=== PATIENT | female | born 1980 | race Hispanic/Latino ===

== ENCOUNTER 2020-10-07 01:10 | Observation (INO) | payer OTHER ==
[2020-10-07] MEDS ORDERED: Ondansetron ODT 4 MG TAB PO PRN (03:26)
[2020-10-07] MEDS ORDERED: HYDROcodone/Acetaminophen 7.5/325 mg Tablet PO PRN (03:26)
[2020-10-07] MEDS ORDERED: Senokot S 8.6-50 MG TAB PO PRN (03:26)
[2020-10-07] MEDS ORDERED: Fentanyl 100 MCG/2 ML VIAL SLOW IVP PRN (03:31)
[2020-10-07] MEDS ORDERED: Dextrose 5% in Water 1,000 ML IV PRN (03:32)
[2020-10-07] MEDS ORDERED: Dextrose 50% Abboject 50 ML SYRINGE SLOW IVP PRN (03:32)
[2020-10-07] MEDS: Sodium Chloride 0.9% 1,000 ML IV SCH ×3 (06:00→17:15)
[2020-10-07 06:15] VITALS: BMI 44.0
[2020-10-07] MEDS: HumaLOG 300 UNITS/3 ML VIAL SC PRN ×3 (06:38→20:47)
[2020-10-07] MEDS ORDERED: FLU VACC QS2020-21(6MOS UP)/PF 60 MCG/0.5 ML SYRINGE IM ONE (07:30)
[2020-10-07 07:55] LABS: #Lymphocytes 1.8 thou/uL (1.20-3.40); #Monocytes 0.3 thou/uL (0.11-0.59); #Neutrophils 10.1 thou/uL (1.40-6.50); %Basophils 0.1 % (0.0-1.0); %Eosinophils 0.1 % (0.0-10.0); %Lymphocytes 14.8 % (21.0-51.0); %Monocytes 2.7 % (0.0-10.0); %Neutrophils 82.2 % (42.0-75.0); Hemoglobin 13.1 g/dL (12.0-16.0); Mean Corpuscular Hemoglobin 27.1 pg (27.0-31.0); Mean Corpuscular Volume 84.9 fL (78.0-98.0); Mean Platelet Volume 6.7 fL (7.4-10.4); Platelet Count 373 thou/uL (130-400); RBC Distribution Width 13.3 % (11.5-14.5); Red Blood Cell (RBC) Count 4.82 mill/uL (4.20-5.40); White Blood Cell (WBC) Count 12.3 thou/uL (4.8-10.8)
[2020-10-07 08:15] LABS: Anion Gap 13 mmol/L (10-20); BUN (Urea Nitrogen) 12 mg/dL (7.0-18.7); Calc. Creatinine Clearance 190 mL/min (70-130); Calcium 9.1 mg/dL (7.8-10.44); Carbon Dioxide 20 mmol/L (22-29); Chloride 108 mmol/L (98-107); Glucose 178 mg/dL (70-105); Potassium 4.3 mmol/L (3.5-5.1); Sodium 137 mmol/L (136-145)
[2020-10-07] MEDS ORDERED: Enoxaparin Sodium 40 MG/0.4 ML SYRINGE SC SCH (09:00)
[2020-10-07] MEDS ORDERED: Magnevist 469MG/ML 20 ML VIAL ONE (09:42)
[2020-10-07] MEDS: Famotidine 20 MG TAB PO SCH ×2 (10:10→20:45)
[2020-10-07] MEDS: HYDROcodone/Acetaminophen 7.5/325 mg Tablet PO PRN (10:17)
[2020-10-07 13:17] LABS: SARS-CoV-2 PCR by NAA Not Detected (NotDetected)
[2020-10-07] MEDS: Dexamethasone 4 mg/ml Vial SLOW IVP SCH ×2 (13:58→20:45)
[2020-10-07] MEDS: Gabapentin 300 MG CAP PO SCH ×2 (14:05→20:45)
[2020-10-07] MEDS ORDERED: Lidocaine 5% Patch TD SCH (21:00)
[2020-10-08] MEDS: Dexamethasone 4 mg/ml Vial SLOW IVP SCH (05:22)
[2020-10-08] MEDS: Sodium Chloride 0.9% 1,000 ML IV SCH (05:22)
[2020-10-08] MEDS ORDERED: Dexmedetomidine 200 MCG/2 ML VIAL ONE (06:16)
[2020-10-08] MEDS ORDERED: Fentanyl 100 MCG/2 ML VIAL ONE ×2 (06:16→10:37)
[2020-10-08] MEDS ORDERED: Propofol 1,000 MG/100 ML VIAL IV ONE (07:32)
[2020-10-08 07:58] LABS: BHCG - Serum Negative (NEGATIVE); Hemoglobin A1c 7.9 % (4.0-6.0); Pregs Control Background? CLEAR/WHITE (CLR/WHITE); Pregs Control Bar Appear? YES (CONTROL BAR)
[2020-10-08] MEDS ORDERED: Transdermal Patch Removal TOP SCH (09:00)
[2020-10-08] MEDS ORDERED: Ondansetron PF 4 MG/2 ML Vial ONE (09:04)
[2020-10-08] MEDS ORDERED: Glycopyrrolate 0.2 MG/ML 5 ML SYRINGE ONE (09:04)
[2020-10-08] MEDS ORDERED: PROPOFOL 200 MG/20 ML VIAL ONE (09:04)
[2020-10-08] MEDS ORDERED: Rocuronium Bromide 10 MG/ML (10ML VIAL) ONE (09:04)
[2020-10-08] MEDS ORDERED: Lidocaine 1% PF 5 ML VIAL ONE (09:04)
[2020-10-08] MEDS ORDERED: PHENYLEPHRINE-NS 100 MCG/ML 10 ML SYRINGE ONE (09:04)
[2020-10-08] MEDS ORDERED: Promethazine HCl 25 MG/ML VIAL IM PRN (10:22)
[2020-10-08] MEDS ORDERED: Ondansetron HCl/PF 4 MG/2 ML Vial IVP PRN (10:22)
[2020-10-08] MEDS ORDERED: Promethazine HCl 25 MG/ML VIAL SLOW IVP PRN (10:22)
[2020-10-08] MEDS: Famotidine 20 MG TAB PO SCH (10:40)
[2020-10-08] MEDS: Gabapentin 300 MG CAP PO SCH ×2 (10:41→15:07)
[2020-10-08] MEDS ORDERED: CEFAZOLIN 2 GM in Premix Bag 1 BAG IVPB SCH (11:00)
[2020-10-08 11:30] VITALS: BP 136/88; TEMP 97.8
[2020-10-08] MEDS: HYDROcodone/Acetaminophen 7.5/325 mg Tablet PO PRN (12:40)
== END 2020-10-08 15:33 | disposition home or self-care (01) ==
LOC: ERS 01:10 → T4-B 03:26
PROVIDERS: ADMIT Student in an Organized Health Care Education/Training Program; ATTEND Internal Medicine
PROC: 01NB0ZZ Release Lumbar Nerve, Open Approach (ICD-10-PCS; principal; 2020-10-08)
DX: M51.16 Intervertebral disc disorders with radiculopathy, lumbar region (principal); R33.8 Other retention of urine; E11.65 Type 2 diabetes mellitus with hyperglycemia; E66.01 Morbid (severe) obesity due to excess calories; Z68.41 Body mass index [BMI] 40.0-44.9, adult; Z88.4 Allergy status to anesthetic agent; Z20.822 Contact with and (suspected) exposure to COVID-19
CPT/HCPCS: 36415; 36416; 51798; 72158; 76000; 80048; 80061; 83036; 84443; 84703; 85025; 87635; 96374; 96375; 96376; A9579; G0378; J0690; J1100; J1815; J2405; J2704; J3010; J3370; U0003; U0005

== ENCOUNTER 2021-03-22 12:07 | Outpatient (CLI) | payer OTHER ==
[~2021-03-22 12:07] MED LIST: Magnevist 469MG/ML 20 ML VIAL ONE
== END 2021-03-22 12:08 | disposition home or self-care (01) ==
LOC: BICMRI 12:07
PROVIDERS: ATTEND Neurological Surgery
DX: M51.16 Intervertebral disc disorders with radiculopathy, lumbar region (principal); Z98.890 Other specified postprocedural states
CPT/HCPCS: 72158; A9579